=== PATIENT | male | born 1995 | race Caucasian/White ===

== ENCOUNTER → 2021-01-30 | Outpatient (CLI) | payer OTHER ==
[~2021-01-30] MED LIST: AUGMENTIN ES-6050 ML PO; NKHM; PHENERGAN12.5 M1 PO; TYLENOL W/CODEI1 TA2 PO
== END | disposition home or self-care (01) ==
LOC: COVID19 15:21
PROVIDERS: ATTEND Internal Medicine
DX: Z11.52 Encounter for screening for COVID-19 (principal)

== ENCOUNTER 2023-01-27 10:40 | Emergency (ER) | payer SELFPAY ==
[~2023-01-27] VITALS: Ht 167.6 cm; Wt 95.3 kg
[2023-01-27 11:08] LABS: BASO % 0.1 % (0.0-1.0); EOS # 0.1 10*3/uL (0.0-0.4); EOS % 1.4 % (1.0-4.0); HEMATOCRIT 46.3 % (42.0-52.0); LYMPH # 1.4 10*3/uL (1.3-4.4); LYMPH % 19.9 % (27.0-41.0); MEAN CELL VOLUME 87.9 fl (80.0-94.0); MEAN CORPUSCULAR HGB 30.4 pg (27.0-31.0); MEAN CORPUSCULAR HGB CONC 34.6 g/dl (33.0-37.0); MEAN PLATELET VOLUME 9.2 fl (9.6-12.3); MONO # 0.8 10*3/uL (0.1-1.0); MONO % 10.4 % (3.0-9.0); NEUT # 4.9 10*3/uL (2.3-7.9); NEUT % 67.8 % (47.0-73.0); PLATELET COUNT AUTOMATED 215 10*3/uL (130-400); RED BLOOD COUNT 5.27 10*6/uL (4.50-5.90); RED CELL DISTRI WIDTH 12.6 % (0-14.5); WHITE BLOOD COUNT 7.2 10*3/uL (4.8-10.8)
[2023-01-27 11:36] LABS: ALKALINE PHOSPHATASE 125 U/L (46-116); BUN 14 mg/dl (9-23); CHLORIDE 105 mmol/L (98-107); POTASSIUM 3.4 mmol/L (3.4-5.1); SGPT/ALT 53 U/L (5-49); TOTAL PROTEIN 7.6 gm/dL (6.0-8.0)
[2023-01-27 11:39] LABS: ACT PARTIAL THROMBO TIME 31.6 SECONDS (20.0-32.1)
[2023-01-27] MEDS ORDERED: NAPROXEN500 MG PO (13:33)
== END 2023-01-27 13:48 | disposition home or self-care (01) ==
LOC: ED 10:40
PROVIDERS: Family Medicine
DX: R09.1 Pleurisy (principal); R06.02 Shortness of breath